=== PATIENT | female | born 1990 | race American Indian/Alaskan Native ===

== ENCOUNTER 2018-05-22 23:35 | Emergency (ER) | payer OTHER ==
[2018-05-22 23:45] VITALS: BP 118/74
[2018-05-23] MEDS ORDERED: TETRACAINE 0.5% OU STA (00:23)
[2018-05-23] MEDS ORDERED: FUL-GLO OP STA (00:23)
--- NOTE | 2018-05-23 02:17 | Emergency Department Report ---
ED Eye Problem HPI - General Chief complaint: Burn/Smoke Inhalation Stated complaint: HURT AT WORK/HOT WATER SPLASH IN EYES Time Seen by Provider: 05/23/18 00:23 Source: patient Mode of arrival: Ambulatory Limitations: No Limitations - History of Present Illness chief complaint: eye pain, eye injury (got hot water spalshed in face) Onset Description: sudden Location: both eyes Eye Symptoms: pain Severity: mild Consistency: constant Associated Symptoms: none Treatments Prior to Arrival: none - Related Data Patient Tetanus UTD: No Previous Rx's Medication Instructions Recorded Last Taken Type Cyclobenzaprine [Flexeril] 10 mg PO QHS PRN #20 tablet 04/05/18 Unknown Rx Ibuprofen [Motrin] 800 mg PO Q8HR #30 tablet 04/05/18 Unknown Rx Sulfamethoxazole/Trimethoprim 1 each PO BID #14 tablet 04/05/18 Unknown Rx [Bactrim DS TAB] Ketorolac Tromethamine [Acular] 1 drops OP Q6H PRN #5 ml 05/23/18 Unknown Rx Tobramycin 0.3% [Tobrex] 1 applicatio OU Q8HR #1 tube 05/23/18 Unknown Rx Allergies Allergy/AdvReac Type Severity Reaction Status Date / Time No Known Allergies Allergy Unverified 04/05/18 08:00 ED Review of Systems ROS: Stated complaint: HURT AT WORK/HOT WATER SPLASH IN EYES Other details as noted in HPI Constitutional: denies: chills, fever Eyes: denies: eye pain, eye discharge, vision change ENT: denies: ear pain, throat pain Respiratory: denies: cough, shortness of breath, wheezing Cardiovascular: denies: chest pain, palpitations Endocrine: no symptoms reported Gastrointestinal: denies: abdominal pain, nausea, diarrhea Genitourinary: denies: urgency, dysuria, discharge Musculoskeletal: denies: back pain, joint swelling, arthralgia Skin: denies: rash, lesions Neurological: denies: headache, weakness, paresthesias Psychiatric: denies: anxiety, depression Hematological/Lymphatic: denies: easy bleeding, easy bruising ED Past Medical Hx - Past Medical History Previous Medical History?: Yes Hx Diabetes: Yes Hx Seizures: Yes Additional medical history: Crohns - Surgical History Past Surgical History?: No - Social History Smoking Status: Never Smoker Substance Use Type: None - Medications Home Medications: Home Medications Medication Instructions Recorded Confirmed Last Taken Type Cyclobenzaprine [Flexeril] 10 mg PO QHS PRN #20 tablet 04/05/18 Unknown Rx Ibuprofen [Motrin] 800 mg PO Q8HR #30 tablet 04/05/18 Unknown Rx Sulfamethoxazole/Trimethoprim 1 each PO BID #14 tablet 04/05/18 Unknown Rx [Bactrim DS TAB] Ketorolac Tromethamine [Acular] 1 drops OP Q6H PRN #5 ml 05/23/18 Unknown Rx Tobramycin 0.3% [Tobrex] 1 applicatio OU Q8HR #1 tube 05/23/18 Unknown Rx ED Physical Exam - General Limitations: No Limitations General appearance: alert, in no apparent distress - Head Head exam: Present: atraumatic, normocephalic - Eye Eye exam: Present: normal appearance, PERRL, EOMI Pupils: Present: normal accommodation, other (negative funduscopic examination. And negative fluorescein strip. Examination. No signs of entrapment) - ENT ENT exam: Present: normal exam, normal orophraynx, mucous membranes moist - Neck Neck exam: Present: normal inspection, full ROM. Absent: tenderness, lymphadenopathy - Respiratory Respiratory exam: Present: normal lung sounds bilaterally. Absent: respiratory distress - Cardiovascular Cardiovascular Exam: Present: regular rate, normal rhythm. Absent: systolic murmur, diastolic murmur, rubs, gallop - GI/Abdominal GI/Abdominal exam: Present: soft, normal bowel sounds - Extremities Exam Extremities exam: Present: normal inspection - Back Exam Back exam: Present: normal inspection - Neurological Exam Neurological exam: Present: alert, oriented X3 - Psychiatric Psychiatric exam: Present: normal affect, normal mood - Skin Skin exam: Present: warm, dry, intact, normal color. Absent: rash ED Course Vital Signs 05/22/18 23:43 Temperature 97.7 F Pulse Rate 89 Respiratory 16 Rate Blood Pressure 118/74 [Right] O2 Sat by Pulse 100 Oximetry Critical care attestation.: If time is entered above; I have spent that time in minutes in the direct care of this critically ill patient, excluding procedure time. ED Disposition Clinical Impression: Corneal irritation of both eyes Disposition: - TO HOME OR SELFCARE Is pt being admited?: No Does the pt Need Aspirin: No Condition: Stable Instructions: Eye Lubricant (Into the eye) Prescriptions: Ketorolac Tromethamine [Acular] 1 drops OP Q6H PRN #5 ml PRN Reason: eye pain Tobramycin 0.3% [Tobrex] 1 applicatio OU Q8HR #1 tube Referrals: MARCO KELSEY MD [Staff Physician] - 3-5 Days Forms: Work/School Release Form(ED)
== END 2018-05-23 02:50 | disposition home or self-care (01) ==
LOC: ED 23:35
DX: S05.01XA Injury of conjunctiva and corneal abrasion without foreign body, right eye, initial encounter (principal); S05.02XA Injury of conjunctiva and corneal abrasion without foreign body, left eye, initial encounter; E11.9 Type 2 diabetes mellitus without complications; K50.90 Crohn's disease, unspecified, without complications; X11.8XXA Contact with other hot tap-water, initial encounter; Y93.89 Activity, other specified; Y92.69 Other specified industrial and construction area as the place of occurrence of the external cause; Y99.8 Other external cause status
CPT/HCPCS: 99283

== ENCOUNTER 2021-07-11 19:52 | Emergency (ER) | payer MEDICAID, OTHER ==
[2021-07-11] MEDS ORDERED: MORPHINE 4 MG/1 ML INJ IV ONE (20:01)
[2021-07-11] MEDS ORDERED: FAMOTIDINE 20 MG/2 ML INJ IV ONE (20:01)
[2021-07-11] MEDS ORDERED: LORazepam 2 MG/ML VIAL IV ONE (20:01)
[2021-07-11] MEDS ORDERED: ONDANSETRON 4 MG/2 ML INJ IV ONE (20:01)
[2021-07-11] MEDS ORDERED: SODIUM CHLORIDE 0.9% 1000 ML 1,000 ML IV ONE ×2 (20:03→21:04)
--- NOTE | 2021-07-11 20:15 | Emergency Department Report ---
<TIMOTHY NAVARRO - Last Filed: 07/12/21 00:48> ED Abdominal Pain HPI - General Stated Complaint: SEIZURE - Related Data Previous Rx's Medication Instructions Recorded Last Taken Type Sulfamethoxazole/Trimethoprim 1 each PO BID #14 tablet 04/05/18 Unknown Rx [Bactrim DS TAB] Tobramycin 0.3% [Tobrex] 1 applicatio OU Q8HR #1 tube 05/23/18 Unknown Rx Metoclopramide [Reglan] 10 mg PO Q6HR PRN #30 tab 07/11/21 Unknown Rx Pantoprazole [Protonix TAB] 20 mg PO BID #60 tablet. 07/11/21 Unknown Rx Phenytoin [Dilantin] 100 mg PO Q8HR #90 capsule 07/11/21 Unknown Rx Allergies Allergy/AdvReac Type Severity Reaction Status Date / Time No Known Allergies Allergy Verified 07/11/21 21:20 ED Past Medical Hx - Medications Home Medications: Home Medications Medication Instructions Recorded Confirmed Last Taken Type Sulfamethoxazole/Trimethoprim 1 each PO BID #14 tablet 04/05/18 Unknown Rx [Bactrim DS TAB] Tobramycin 0.3% [Tobrex] 1 applicatio OU Q8HR #1 tube 05/23/18 Unknown Rx Metoclopramide [Reglan] 10 mg PO Q6HR PRN #30 tab 07/11/21 Unknown Rx Pantoprazole [Protonix TAB] 20 mg PO BID #60 tablet. 07/11/21 Unknown Rx Phenytoin [Dilantin] 100 mg PO Q8HR #90 capsule 07/11/21 Unknown Rx ED Course - Reevaluation(s) Reevaluation #1: 07/11/21 23:02 The patient is seen and examined. No active vomiting. No further convulsions noted. Noncontrast CT scan of the brain is negative for acute findings. CT scan of the abdomen pelvis that negative for emergent or surgical findings. Rest findings reviewed and appreciated. The patient like to follow-up with an outpatient primary care doctor for this. I went back to reevaluate the patient. She is sleepy. She has no abdominal pain or tenderness at this time. She denies urinary symptoms. The patient may be discharged when she is more awake and arousable. Have not appreciated any coffee-ground emesis. I suspect the patient has underlying gastroparesis versus possible Crohn's disease. Mild gap likely secondary to dehydration, likely secondary to nausea and vomiti ng, probable gastroparesis, and possible convulsive/seizure. History of possible coffee-ground emesis likely secondary to Nargis-Caballero tear. Start Protonix, Reglan, diet lifestyle modifications. Outpatient GI follow-up 07/11/21 23:08 07/12/21 00:49 The patient is reassessed. No active vomiting. She is more awake and arousable. I explained all findings to the patient. I also specifically counseled patient on breast findings, and need to follow-up with an outpatient primary care doctor, redevelopment manager or breast specialist to evaluate for breast abnormality. Return precautions are reviewed. No additional convulsions noted no additional seizures noted ED Medical Decision Making - Lab Data Result diagrams: 07/11/21 20:33 07/11/21 20:33 Vital Signs 07/11/21 20:25 Temperature 98 F Pulse Rate 84 Respiratory 18 Rate Blood Pressure 139/88 O2 Sat by Pulse 100 Oximetry Lab Results 07/11/21 07/11/21 07/11/21 Range/Units 20:33 20:33 20:33 WBC 6.5 (4.5-11.0) K/mm3 RBC 2.69 L (3.65-5.03) M/mm3 Hgb 8.6 L (10.1-14.3) gm/dl Hct 24.6 L (30.3-42.9) % MCV 91 (79-97) fl MCH 32 (28-32) pg MCHC 35 H (30-34) % RDW 13.7 (13.2-15.2) % Plt Count 309 (140-440) K/mm3 Lymph % (Auto) 18.0 (13.4-35.0) % [place] % (Auto) 5.0 (0.0-7.3) % Eos % (Auto) 2.5 (0.0-4.3) % Baso % (Auto) 0.5 (0.0-1.8) % Lymph # (Auto) 1.2 (1.2-5.4) K/mm3 [place] # (Auto) 0.3 (0.0-0.8) K/mm3 Eos # (Auto) 0.2 (0.0-0.4) K/mm3 Baso # (Auto) 0.0 (0.0-0.1) K/mm3 Seg Neutrophils % 74.0 H (40.0-70.0) % Seg Neutrophils # 4.8 (1.8-7.7) K/mm3 VBG pH (7.320-7.420) Sodium 136 L (137-145) mmol/L Potassium 5.0 (3.6-5.0) mmol/L Chloride 108.1 H (98-107) mmol/L Carbon Dioxide 17 L (22-30) mmol/L Anion Gap 16 mmol/L BUN 16 (7-17) mg/dL Creatinine 1.2 (0.6-1.2) mg/dL Estimated GFR > 60 ml/min BUN/Creatinine Ratio 13 % Glucose 253 H (65-100) mg/dL Lactic Acid (0.7-2.0) mmol/L Calcium 9.1 (8.4-10.2) mg/dL Magnesium 1.80 (1.7-2.3) mg/dL Total Bilirubin 0.20 (0.1-1.2) mg/dL AST 17 (5-40) units/L ALT 23 (7-56) units/L Alkaline Phosphatase 80 (35-129) units/L Total Protein 6.9 (6.3-8.2) g/dL Albumin 4.1 (3.9-5) g/dL Albumin/Globulin Ratio 1.5 % Lipase 20 (13-60) units/L HCG, Qual (Negative) Phenytoin 0.8 L (10.0-20.0) ug/mL 07/11/21 07/11/21 07/11/21 Range/Units 20:33 20:33 20:33 WBC (4.5-11.0) K/mm3 RBC (3.65-5.03) M/mm3 Hgb (10.1-14.3) gm/dl Hct (30.3-42.9) % MCV (79-97) fl MCH (28-32) pg MCHC (30-34) % RDW (13.2-15.2) % Plt Count (140-440) K/mm3 Lymph % (Auto) (13.4-35.0) % [place] % (Auto) (0.0-7.3) % Eos % (Auto) (0.0-4.3) % Baso % (Auto) (0.0-1.8) % Lymph # (Auto) (1.2-5.4) K/mm3 [place] # (Auto) (0.0-0.8) K/mm3 Eos # (Auto) (0.0-0.4) K/mm3 Baso # (Auto) (0.0-0.1) K/mm3 Seg Neutrophils % (40.0-70.0) % Seg Neutrophils # (1.8-7.7) K/mm3 VBG pH 7.402 (7.320-7.420) Sodium (137-145) mmol/L Potassium (3.6-5.0) mmol/L Chloride (98-107) mmol/L Carbon Dioxide (22-30) mmol/L Anion Gap mmol/L BUN (7-17) mg/dL Creatinine (0.6-1.2) mg/dL Estimated GFR ml/min BUN/Creatinine Ratio % Glucose (65-100) mg/dL Lactic Acid 1.50 (0.7-2.0) mmol/L Calcium (8.4-10.2) mg/dL Magnesium (1.7-2.3) mg/dL Total Bilirubin (0.1-1.2) mg/dL AST (5-40) units/L ALT (7-56) units/L Alkaline Phosphatase (35-129) units/L Total Protein (6.3-8.2) g/dL Albumin (3.9-5) g/dL Albumin/Globulin Ratio % Lipase (13-60) units/L HCG, Qual Negative (Negative) Phenytoin (10.0-20.0) ug/mL - EKG Data 07/11/21 23:01 EKG is interpreted at 20: 1 6 Sinus rhythm, 79 bpm. Normal axis, normal P wave axis, poor R wave progression, QTC 4 4 2 ms. This is an abnormal EKG. This is not a STEMI - Radiology Data Radiology results: pending, report reviewed, image reviewed CT ABDOMEN AND PELVIS WITH CONTRAST INDICATION / CLINICAL INFORMATION: U nspecified abdominal pain, nausea with vomiting. TECHNIQUE: Axial CT images were obtained through the abdomen and pelvis after 100 cc Omnipaque [address] scans at this location are performed using CT dose reduction for ALARA by means of automated exposure control. COMPARISON: None available. FINDINGS: LOWER CHEST: No acute findings. 2 masses are seen along the inner right breast measuring up to 2.2 cm. LIVER: No significant abnormality. GALLBLADDER: No significant abnormality. BILE DUCTS: No significant abnormality. PANCREAS: No significant abnormality. SPLEEN: No significant abnormality. ADRENALS: No significant abnormality. RIGHT KIDNEY/URETER: No significant abnormality. LEFT KIDNEY/URETER: Nonobstructive left renal stones measure up to 3 mm along the lower pole. No other significant abnormality. STOMACH/SMALL BOWEL: No significant abnormality. COLON: No significant abnormality. APPENDIX: No significant abnormality. PERITONEUM: No free fluid. No free air. No fluid collection. LYMPH NODES: No significant adenopathy. VASCULATURE: No significant abnormality. URINARY BLADDER: Well-distended without other acute findings. REPRODUCTIVE ORGANS: No significant abnormality. ADDITIONAL FINDINGS: None. BONES: No significant abnormality IMPRESSION: 1. Nonobstructive left renal stones measuring up to 3 mm. No other acute findings. 2. Incidental right breast masses measuring up to 2 cm. Dedicated nonemergent diagnostic workup with a limited right breast ultrasound and possible diagnostic right mammogram is recommended. Signer Name: Clark Navarro MD Signed: 07/11/2021 9:34 PM Workstation Name: [employer] CT HEAD WITHOUT CONTRAST INDICATION / CLINICAL INFORMATION: Convulsions versus seizure. TECHNIQUE: All CT scans at this location are performed using CT dose reduction for ALARA by means of automated exposure control. COMPARISON: None available. FINDINGS: Motion artifact limits the study. BRAIN PARENCHYMA: No acute intracranial hemorrhage. No evidence of recent infarct. No mass effect or midline shift. VENTRICULAR SYSTEM/EXTRA-AXIAL SPACES: Ventricles are normal for age. No extra-axial fluid collection. ORBITS: Normal as visualized. SKELETAL SY STEM/SOFT TISSUES: Normal bones and soft tissues. PARANASAL SINUSES/MASTOID AIR CELLS: The right maxillary sinus and the majority of the ethmoid air cells as well as the right sphenoid sinus are completely opacified. No other significant abnormality. ADDITIONAL FINDINGS: None. IMPRESSION: 1. No acute intracranial abnormality. 2. Sinusitis as above. Signer Name: Clark Navarro MD Signed: 07/11/2021 9:29 PM Workstation Name: [employer] ED Disposition Clinical Impression: Acute abdominal pain, Abnormal computed tomography of abdomen and pelvis, Convulsion, History of nausea and vomiting, Subtherapeutic phenytoin level Disposition: 01 HOME / SELF CARE / HOMELESS Is pt being admited?: No Does the pt Need Aspirin: No Condition: Good Additional Instructions: Do not drive or operate motor vehicles for the next 6 months, or until cleared to do so by your primary care doctor or a neurologist. Recommend follow-up with a primary care doctor or neurologist within the next week. [facility] is a local primary care clinic. Dr. Tamayo is a local neurology specialist. Avoid consumption of Motrin, ibuprofen, Naprosyn, Aleve, heavy and spicy foods, alcohol, tobacco, smoke products and marijuana/cannabis. Consume foods that are high in iron, such as chicken, salmon, meat, and plenty of green leafy vegetables. Also recommended the patient take a multivitamin [id number] on a daily basis. Patient may take [id number] Tylenol as needed for physical pain, patient is strongly encouraged to take her phenytoin/Dilantin as prescribed. Noncompliance with Dilantin may cause breakthrough convulsion and seizure, which in turn may cause , disability, paralysis, loss of quality of life. Please take the Reglan as needed for nausea and vomiting, and Protonix as directed for history of vomiting and possible coffee-ground emesis. Patient CT scan of the abdomen pelvis demonstrated no acutely emergent findings, however, nonspecific breast abnormality was noted on the CT scan of the abdomen pelvis It is very important that the patient follow-up with her primary care doctor, or redevelopment manager/breast specialist for these breast abnormalities within the next 2 to 4 weeks, to exclude tumor, cancer, malignancy. Please have your primary care doctor, or redevelopment manager or breast specialist contact medical records department, to obtain copies of laboratory studies and radiology studies. We also recommend follow-up with a demolition worker for history of nausea and vomiting, and possible coffee-ground emesis within the next month. [facility] is a local GI practice. Please return to the emergency room right away with new pain, worsened pain, migration of pain, projectile vomiting, change in mental status, confusion, inability tolerate liquid feeds, new, worsened or different symptoms not present on the initial emergency room evaluation Prescriptions: Phenytoin [Dilantin] 100 mg PO Q8HR #90 capsule Pantoprazole [Protonix TAB] 20 mg PO BID #60 tablet. Metoclopramide [Reglan] 10 mg PO Q6HR PRN #30 tab PRN Reason: Nausea Referrals: [facility] [Provider Group] - 3-5 Days [facility] [Provider Group] - 3-5 Days THAD TAMAYO MD [Referring] - 3-5 Days Forms: Work/School Release Form(ED) <RUEL SMITH - Last Filed: 07/12/21 22:14> ED Abdominal Pain HPI - History of Present Illness Initial Comments: 31-year-old female with a past medical history of seizures, insulin-dependent diabetes, and diabetic neuropathy presents to the hospital with seizure-like activity, abdominal pain, nausea, and vomiting for the past 4 days I was informed by charge nurse Stephy that patient was pulled out of the car with seizure-like activity. She had jerking movements of her extremities and blinking of her eyes and staff had to lift her out of the vehicle and place her on a stretcher. Once placed on a stretcher in the ED patient was immediately able to communicate with staff and did not appear to have a postictal period. Patient's friend at the bedside states he received a call from the patient that she need to go to the hospital because she did not feel good due to GI symptoms. As they were approaching the ER she began exhibiting jerking and seizure-like activity I was called to the room by triage nurse for seizure-like activity. Upon my arrival patient had some noticeable tremors but was tracking staff with her head and eyes. I was able to speak to her during the shaking activity which subsided while I was speaking to her. Patient states she is having severe epigastric and left-sided abdominal pain with nausea and vomiting for the past 4 days. Patient does endorse having blood in her vomitus but denies melena or hematochezia. She denies previous abdominal surgeries or gastroparesis. Medical record states she has a history of Crohn's. patient states she has had loose stools for the past 4 to 5 years and never followed up for colonoscopy to be officially worked up for Crohn's disease. She also has history of seizures and has not been able to keep down her Dilantin and glucose in the 200s upon arrival. She denies headache or chance of ED Review of Systems ROS: Stated complaint: SEIZURE Other details as noted in HPI ED Past Medical Hx - Past Medical History Hx Diabetes: Yes Hx Seizures: Yes Additional medical history: Crohns - Social History Smoking Status: Never Smoker Substance Use Type: None ED Physical Exam - Other Other exam information: General: Moderate distress secondary to pain Head: Atraumatic Eyes: normal appearance ENT: Moist mucous membranes Neck: Normal appearance, no midline tenderness Chest: Clear to auscultation bilaterally CV: Regular rate and rhythm Abdomen: Soft, normal bowel sounds, epigastric and left-sided abdominal tender Back: Normal inspection Extremity: Normal inspection, full range of motion Neuro: Alert O x 3, no facial asymmetry, speech clear, no gross motor sensory deficit Psych: Appropriate behavior Skin: No rash ED Course Vital Signs 07/11/21 07/11/21 20:25 22:31 Temperature 98 F 98 F Pulse Rate 84 78 Respiratory 18 18 Rate Blood Pressure 139/88 Blood Pressure 126/78 [Right] O2 Sat by Pulse 100 100 Oximetry - Reevaluation(s) Reevaluation #1: 07/11/21 20:46 pt vomiting coffee ground material, benadryl and reglan ordered ED Medical Decision Making - Lab Data Result diagrams: 07/11/21 20:33 07/11/21 20:33 - EKG Data -: EKG Interpreted by Fl EKG shows normal: sinus rhythm, intervals (QTC 442), ST-T waves (No STEMI) Rate: normal (73) - Medical Decision Making 31-year-old female presents to the hospital primarily with GI symptoms for the past 4 days. Patient presented with seizure-like activity that appeared to be more pseudoseizure like as opposed to actual seizures. Patient did not have any postictal period. She is unable to tolerate Dilantin. Patient was medicated with morphine 4 mg, Zofran 4 mg, Ativan 0.5 mg, Pepcid, and normal saline Labs were ordered including venous pH, Dilantin level lactic acid, chemistries, hCG, magnesium, UDS, UA, lipase, CBC, and LFTs EKG requested CT abdomen pelvis with IV contrast ordered pending creatinine result At this time differential includes gastroenteritis, gastroparesis, pancreatitis, appendicitis, diverticulitis, inflammatory bowel disease, DKA, seizures, and pseudoseizures, drug abuse, UTI 07/11/21 20:46 pt vomiting coffee ground material, benadryl and reglan ordered Patient will be signed out to oncoming physician Dr. Navarro to reassess and follow-up results Critical Care Time: No Critical care attestation.: If time is entered above; I have spent that time in minutes in the direct care of this critically ill patient, excluding procedure time.
[2021-07-11] MEDS ORDERED: METOCLOPRAMIDE 10 MG/2 ML INJ IV ONE (20:45)
[2021-07-11] MEDS ORDERED: diphenhydrAMINE 50 MG/ML VIAL IV ONE (20:45)
[2021-07-11 21:08] LABS: Alanine Aminotransferase 23 units/L (7-56); Albumin 4.1 g/dL (3.9-5); BUN/Creatinine Ratio 13; Blood Urea Nitrogen 16 mg/dL (7-17); Calcium 9.1 mg/dL (8.4-10.2); Hemolysis Index 5
[2021-07-11] MEDS ORDERED: PHENYTOIN 1,000 MG in SODIUM CHLORIDE 0.9% 250ML 250 ML IV ONE (21:16)
[2021-07-11 21:24] LABS: Basophils % (Auto) 0.5 % (0.0-1.8); Eosinophils # (Auto) 0.2 K/mm3 (0.0-0.4); Eosinophils % (Auto) 2.5 % (0.0-4.3); Hematocrit 24.6 % (30.3-42.9); Hemoglobin 8.6 gm/dl (10.1-14.3); Lymphocytes # (Auto) 1.2 K/mm3 (1.2-5.4); Mean Corpuscular HGB Conc 35 % (30-34); Mean Corpuscular Volume 91 fl (79-97); Monocytes # (Auto) 0.3 K/mm3 (0.0-0.8); Platelet Count 309 K/mm3 (140-440); Red Blood Count 2.69 M/mm3 (3.65-5.03); Red Cell Distribution Width 13.7 % (13.2-15.2)
[2021-07-11] MEDS ORDERED: PANTOPRAZOLE 40 MG INJ IV ONE (21:52)
[2021-07-11] MEDS ORDERED: HALOPERIDOL LACTATE 5 MG/1 ML INJ IM ONE (21:52)
--- NOTE | 2021-07-11 22:33 | Cat Scan Report ---
CT HEAD WITHOUT CONTRAST INDICATION / CLINICAL INFORMATION: Convulsions versus seizure. TECHNIQUE: All CT scans at this location are performed using CT dose reduction for ALARA by means of automated exposure control. COMPARISON: None available. FINDINGS: Motion artifact limits the study. BRAIN PARENCHYMA: No acute intracranial hemorrhage. No evidence of recent infarct. No mass effect or midline shift. VENTRICULAR SYSTEM/EXTRA-AXIAL SPACES: Ventricles are normal for age. No extra-axial fluid collection . ORBITS: Normal as visualized. SKELETAL SYSTEM/SOFT TISSUES: Normal bones and soft tissues. PARANASAL SINUSES/MASTOID AIR CELLS: The right maxillary sinus and the majority of the ethmoid air ce lls as well as the right sphenoid sinus are completely opacified. No other significant abnormality. ADDITIONAL FINDINGS: None. IMPRESSION: 1. No acute intracranial abnormality. 2. Sinusitis as above. Signer Name: Clark Navarro MD Signed: 07/11/2021 10:29 PM Workstation Name: [id number]
--- NOTE | 2021-07-11 22:39 | Cat Scan Report ---
CT ABDOMEN AND PELVIS WITH CONTRAST INDICATION / CLINICAL INFORMATION: Unspecified abdominal pain, nausea with vomiting. TECHNIQUE: Axial CT images were obtained through the abdomen and pelvis after 100 cc Omnipaque [address] scans at this location are performed using CT dose reduction for ALARA by means of automated exposure control. COMPARISON: None available. FINDINGS: LOWER CHEST: No acute findings. 2 masses are seen along the inner right breast measuring up to 2.2 cm . LIVER: No significant abnormality. GALLBLADDER: No significant abnormality. BILE DUCTS: No significant abnormality. PANCREAS: No significant abnormality. SPLEEN: No significant abnormality. ADRENALS: No significant abnormality. RIGHT KIDNEY/URETER: No significant abnormality. LEFT KIDNEY/URETER: Nonobstructive left renal stones measure up to 3 mm along the lower pole. No othe r significant abnormality. STOMACH/SMALL BOWEL: No significant abnormality. COLON: No significant abnormality. APPENDIX: No significant abnormality. PERITONEUM: No free fluid. No free air. No fluid collection. LYMPH NODES: No significant adenopathy. VASCULATURE: No significant abnormality. URINARY BLADDER: Well-distended without other acute findings. REPRODUCTIVE ORGANS: No significant abnormality. ADDITIONAL FINDINGS: None. BONES: No significant abnormality IMPRESSION: 1. Nonobstructive left renal stones measuring up to 3 mm. No other acute findings. 2. Incidental right breast masses measuring up to 2 cm. Dedicated nonemergent diagnostic workup with a limited right breast ultrasound and possible diagnostic right mammogram is recommended. Signer Name: Clark Navarro MD Signed: 07/11/2021 10:34 PM Workstation Name: [id number]
[2021-07-12 01:52] VITALS: BP 126/78
--- NOTE | 2021-07-12 18:17 | Electrocardiograph Report ---
[facility] Test Date: 2021-07-11 Test Time: 20:16:01 Pat Name: LISA OREILLY Department: Room: Gender: F Trimmer Meat: TUTU : 1990 Requested By: RUEL SMITH Order Number: [id number] Reading MD: Daniel Luevano Measurements Intervals [place] Rate: 79 P: 39 [place]: 149 QRS: 73 QRSD: 76 T: 81 QT: 385 QTc: 442 Interpretive Statements Sinus rhythm Anterolateral Q wave, probably normal for age No previous ECG available for comparison Electronically Signed On 07-12-2021 18:17:06 EDT by Daniel Luevano
== END 2021-07-12 01:52 | disposition home or self-care (01) ==
LOC: ED 19:52
DX: R56.9 Unspecified convulsions (principal); R10.9 Unspecified abdominal pain; R11.2 Nausea with vomiting, unspecified; R93.5 Abnormal findings on diagnostic imaging of other abdominal regions, including retroperitoneum; R88.8 Abnormal findings in other body fluids and substances
CPT/HCPCS: 36415; 70450; 74177; 80053; 80185; 82140; 82805; 83690; 83735; 84703; 85025; 93005; 96361; 96365; 96366; 96375; 99284; C9113; J1165; J1200; J1630; J2060; J2270; J2405; J2765; J3490; J7030; J7050; Q9967